=== PATIENT | female | born 1990 | race Caucasian/White ===

== ENCOUNTER → 2021-07-05 | Outpatient (CLI) | payer BC ==
[2021-07-05 11:03] LABS: BASO # 0.03 K/mm3 (0.02-0.10); EOS # 0.03 K/mm3 (0.04-0.40); EOS % 0.4 % (1.0-5.0); HEMOGLOBIN 14.4 g/dL (12.5-16.0); LYMPH# 2.43 K/mm3 (1.50-4.00); MEAN CELL VOLUME 89 fl (78-100); MEAN CORPUSCULAR HEMOGLOBIN 29 pg (27-31); MEAN CORPUSCULAR HGB CONC 33 g/dL (33-37); MEAN PLATELET VOLUME 10.4 fl (7.4-10.4); MONO # 0.48 K/mm3 (0.20-0.80); NEU # 4.54 K/mm3 (1.40-6.50); PLATELET COUNT 338 K/mm3 (130-400); RED BLOOD COUNT 4.93 M/mm3 (4.10-5.30); RED CELL DISTRIBUTION WIDTH 12.1 % (11.5-14.5); WHITE BLOOD COUNT 7.5 K/mm3 (4.8-10.8)
[2021-07-05 11:06] LABS: URINE APPEARANCE HAZY; URINE BILIRUBIN NEGATIVE (NEGATIVE); URINE BLOOD 50 ery/uL (NEGATIVE); URINE COLOR LT YELLOW; URINE GLUCOSE NEGATIVE (NEGATIVE); URINE KETONE NEGATIVE (NEGATIVE); URINE LEUKOCYTE ESTERASE TRACE (NEGATIVE); URINE NITRATE NEGATIVE (NEGATIVE); URINE PROTEIN(semi-quant) NEGATIVE (NEGATIVE); URINE UROBILINOGEN NORMAL (NORMAL); URINE WBC 0-1 /hpf (0-3)
== END ==
LOC: RAD 08:57
PROVIDERS: Internal Medicine Cardiovascular Disease
DX: Z00.00 Encounter for general adult medical examination without abnormal findings (principal); Z30.431 Encounter for routine checking of intrauterine contraceptive device; N93.9 Abnormal uterine and vaginal bleeding, unspecified

== ENCOUNTER → 2021-09-09 | Outpatient (CLI) | payer BC | LOC: VAS 11:00 → RAD 11:00 → VAS 11:03 | DX: R06.02 Shortness of breath (principal) ==

== ENCOUNTER → 2023-09-11 | Outpatient (CLI) | payer BC ==
[~2023-09-11] MED LIST: KETOROLAC10 MG PO
[2023-09-11 15:49] LABS: D-DIMER 0.19 mg/L FEU (0.15-0.50)
== END ==
LOC: LAB 15:18
PROVIDERS: Nurse Practitioner Family
DX: R06.02 Shortness of breath (principal)

== ENCOUNTER → 2023-10-27 | Outpatient (CLI) | payer BC ==
[~2023-10-27] MED LIST changes: +Iohexol 300 - 100 ML VIAL IV ONE
== END ==
LOC: RAD 07:48
DX: R22.1 Localized swelling, mass and lump, neck (principal)
CPT/HCPCS: Q9967

== ENCOUNTER → 2024-01-19 | Outpatient (CLI) | payer BC ==
[~2024-01-19] MED LIST changes: -Iohexol 300 - 100 ML VIAL IV ONE
== END ==
LOC: RAD 14:19
DX: K59.09 Other constipation (principal)

== ENCOUNTER → 2024-01-20 | Outpatient (CLI) | payer BC | LOC: RAD 09:21 | DX: R10.9 Unspecified abdominal pain (principal); K59.09 Other constipation ==

== ENCOUNTER → 2024-01-22 | Outpatient (CLI) | payer BC ==
[~2024-01-22] MED LIST changes: +Iohexol 300 - 100 ML VIAL IV ONE
== END ==
LOC: RAD 09:00
DX: R10.9 Unspecified abdominal pain (principal)
CPT/HCPCS: Q9967